=== PATIENT | female | born 1980 ===

== ENCOUNTER 2018-05-07 16:23 | Emergency (ER) | payer OTHER, SELFPAY ==
[2018-05-07 16:28] VITALS: BP 120/79; PULSE 80; RESP 15; TEMP 36.4; O2SAT 99
== END 2018-05-07 16:44 | disposition left against medical advice (07) ==
PROVIDERS: Emergency Provider Internal Medicine
DX: S61.412A Laceration without foreign body of left hand, initial encounter (principal)
CPT/HCPCS: 99281; 99282

== ENCOUNTER → 2021-05-17 08:07 | Outpatient (CLI) | payer OTHER, SELFPAY ==
[2021-05-17 08:41] LABS: COVID19 -Nasal RAPID Negative (Negative)
== END ==
PROVIDERS: Visit Provider Specialist
DX: Z01.812 Encounter for preprocedural laboratory examination (principal); Z20.822 Contact with and (suspected) exposure to COVID-19
CPT/HCPCS: 87635

== ENCOUNTER 2021-05-17 08:24 | Day surgery (SDC) | payer OTHER, SELFPAY ==
[2021-05-14 12:04] VITALS: BMI 34.0
--- NOTE | 2021-05-16 19:13 | PM.GYNHP.1 ---
History of Present Illness History of Present Illness Reason for admission: other (LEEP procedure) Narrative: Colleen Lee is a 40 year old female here for LEEP procedure for high-grade dysplasia of the cervix by colposcopy directed biopsies including possible endocervical involvement [facility] Medical History (Updated 05/16/21 @ 19:15 by Audrey Flores MD) Menorrhagia Surgical History (Updated 05/14/21 @ 12:10 by Robyn Lovell RN) H/O LEEP History of tubal ligation Hx of colposcopy with cervical biopsy (04/10/21) Social History household members: spouse Smoking Status: Current every day smoker Meds Home Medications and Allergies Home Medications Medication Instructions Recorded Confirmed Type medroxyprogesterone 10 mg tablet 10 mg PO DAILY #30 tab 03/05/21 05/14/21 Rx Allergies Allergy/AdvReac Type Severity Reaction Status Date / Time Sulfa (Sulfonamide Allergy Mild HIVES Verified 04/10/21 13:30 Antibiotics) [SULFA (SULFONAMIDE ANTIBIOTICS)] Review of Systems Review of Systems ROS: Yes All systems reviewed with the patient and are negative except as otherwise documented Exam Narrative Exam Narrative: HEENT exam within normal limits. Lungs are clear to auscultation percussion. Heart is regular rate and rhythm no S3-S4 murmurs. Abdomen is soft, nontender with no palpable organomegaly. Normal external genitalia, vagina, cervix. Uterus is not enlarged, nontender. No adnexal masses or tenderness. Assessment & Plan Assessment and plan (1) FATIMAH III (cervical intraepithelial neoplasia grade III) with severe dysplasia: Status: Acute (2) Preoperative exam for gynecologic surgery: Status: Acute Assessment & Plan narrative: Patient with FATIMAH 3 on Pap smear confirmed by colpo directed biopsies in all quadrants as well as possible involvement of the ECC. Patient has had a prior LEEP procedure. She is here for LEEP procedure.
--- NOTE | 2021-05-17 | PATH_ITS ---
[facility] Accession Number: [id number] . 01 Material submitted: . PART A: cervix - EXTERNAL CERVICAL OS PART B: cervix - INTERNAL CERVICAL OS PART C: endocervix - ENDOCERVICAL . 02 Diagnosis: A. External Cervixal Os, LEEP Biopsy: High-grade squamous intraepithelial lesion / FATIMAH 2-3 with gland extension. Detached fragments of high grade squamous dysplasia are adjacent to electrocauterized margins; tissue fragmentation precludes definitive margin assessment. No invasive tumor identified. . B. Internal Cervical Os, LEEP Biopsy: Portions of endocervical tissue. Negative for glandular dysplasia or malignancy. Negative for squamous dysplasia or malignancy. Changes consistent with previous instrumentation are present. . C. Endocervical Curetting: Small fragments of endocervical tissue and strips of endocervical glandular epithelium; negative for glandular dysplasia or malignancy. Portions of endometrium / lower uterine segment; negative for glandular hyperplasia, cytologic atypia, or malignancy. [facility] 05/22/2021 1435 Local . 02 Electronically signed: . Christen Rico MD, Pathologist NPI- [id number] . 01 Gross description: . A. Received in formalin and labeled external cervical os. It consists of a diffusely opened, 3.2 x 0.8 cm strip of pink-jones, focally hemorrhagic ectocervical mucosa excised to a depth of 0.5 cm. The endocervical edge is inked green. The radial margin is inked black. The specimen is serially sectioned. Sectioning reveals pink-jones to white-jones, striated, diffusely cystic cut surfaces. Cystic degeneration is involved in approximately 40% of cut surfaces. The specimen is submitted entirely and sequentially. . Summary of sections: A1 = External cervical os biopsy, serially sectioned, five pieces. A2 = External cervical os biopsy, serially sectioned, four pieces. A3-A4 = External cervical os biopsy, serially sectioned, three pieces. . B. Received in formalin and labeled internal cervical os. The specimen consists of a 1.1 x 1.1 x 0.4 cm, irregular, pink-jones to yellow-jones, focally hemorrhagic tissue fragment. An os is not grossly identified. The resection margin is inked black. The specimen is serially sectioned. Sectioning reveals white-jones, fibrous, unremarkable cut surfaces. The specimen is submitted entirely in a single cassette. . Summary of sections: B1 = Internal cervical os biopsy, serially sectioned, five pieces. . C. Received in formalin and labeled endocervical curettings. It consists of a 2.8 x 1.2 x 0.3 cm aggregate of pink-jones, ragged, diffusely hemorrhagic soft tissue fragments. Distinct features are not grossly apparent. The specimen is filtered and submitted entirely in a single cassette. . Summary of sections: C1 = Endocervical curettings, filtered, aggregate. ([id number]) /R 05/18/2021 1904 Local . 02 Pathologist provided ICD-10: N87.1, D06.9 . 02 CPT . 136738, 767677, 214031 Performed at: 01 [facility] [address] [place] [id number] MD Denilson Barfield MD Phone: [phone] Performed at: 02 [facility] [address] [place] [id number] MD Cecile Gray MD Phone: [phone]
[2021-05-17 09:33] VITALS: BP 116/75; PULSE 76; RESP 18; TEMP 36.8; O2SAT 99; BMI 34.0
[2021-05-17] MEDS: LACTATED RINGERS 1,000 ML 100 ML IV (09:44)
--- NOTE | 2021-05-17 10:02 | PM.PREOP ---
Pre-operative Note COVID-19 COVID-19 status: Negative Result date/Date tested (Pos, Neg/Pending): 05/17/21 Interval Note History & Physical reviewed/Exam performed by Physician: Yes Changes to H&P: No
--- NOTE | 2021-05-17 10:15 | SUR.OPER ---
Lithotomy on padded OR bed, head on pillow, arms secured on padded arm boards at <90 degrees abduction. Legs secured in padded yellow fins stirrups.
[2021-05-17] MEDS: FERRIC SUBSULFATE 8 GM SOLUTION 8 ML TOP (10:24)
[2021-05-17] MEDS: POTASSIUM IODIDE/IODINE 473 ML SOLUTION TOP (10:24)
[2021-05-17] MEDS: BUPIVACAINE 0.5% (PF) VIAL 30 ML INJ (10:25)
[2021-05-17] MEDS: EPINEPHrine 1 MG/ML 0.15 MG INJ (10:25)
[2021-05-17 10:51] VITALS: BP 140/87; PULSE 86; RESP 16; TEMP 36.8; O2SAT 97
--- NOTE | 2021-05-17 10:55 | PM.OP.1 ---
Operative Date/Time/Diagnoses Date of procedure: 05/17/21 Time of procedure: 10:55 Pre-op diagnosis: High-grade dysplasia of the cervix including the endocervical canal on colpo directed biopsies Post-op diagnosis: same Procedure & Clinicians Procedure: LEEP Same procedure as scheduled: Yes Indications: High-grade dysplasia on multiple cervical biopsies and ECC taken at colposcopy for abnormal Pap smear Surgeon: Audrey Flores Click Yes if Unassisted: Yes Anesthesia Type: General Operative Notes Findings: Normal exam under anesthesia no significant nonstaining by Lugol's areas of the external cervical Closure Type: not applicable Specimen(s): other (External cervical biopsy including the entire squamocolumnar junction, biopsy of the endocervix and ECC) Estimated Blood Loss (mL): 20 Procedure in detail: Patient was brought to the operating room she underwent a general anesthetic. She was placed in low stirrups. A check system was reviewed with the staff in the room prior to beginning the case. A coated bivalve speculum was placed into the vagina. The cervix was injected with 0.5% Marcaine with epinephrine. A single-tooth tenaculum was placed on the anterior lip of the cervix. The cervix was stained with Lugol's. The loop set at 60 W of cutting was used to remove the entire squamocolumnar junction. A slightly deeper section was taken of the endocervical canal. An ECC was performed. The tissue was cauterized external to the LEEP with ball cautery to extend the treatment zone. An area on the posterior wall of the biopsy continued to bleed so a [id number] suture of 0 Vicryl suture was used to control the bleeding. Monsel's was placed. The patient went to recovery room in good condition. Counts of instruments and sponges were correct. 3 specimens were sent for pathology. Complications: none Post-operative Condition: stable Disposition: same day surgery Plan for aftercare: Treatment and follow-up will be based on pathology report
[2021-05-17 10:56] VITALS: BP 138/57; PULSE 85; RESP 16; O2SAT 96
[2021-05-17 11:01] VITALS: BP 121/82; PULSE 79; RESP 14; O2SAT 95
[2021-05-17 11:25] VITALS: BP 142/80; PULSE 74; RESP 16; TEMP 36.1; O2SAT 98
== END 2021-05-17 11:40 | disposition home or self-care (01) ==
PROVIDERS: Referring Provider Specialist; Visit Provider Specialist
PROC: 0UBC7ZZ Excision of Cervix, Via Natural or Artificial Opening (ICD-10-PCS; CPT 57522; principal; 2021-05-17 10:15)
DX: N87.1 Moderate cervical dysplasia (principal); K21.9 Gastro-esophageal reflux disease without esophagitis; Z01.818 Encounter for other preprocedural examination; Z20.822 Contact with and (suspected) exposure to COVID-19
CPT/HCPCS: 57522; 87635; A9270; J0171; J0330; J1100; J2405; J2704; J3010

== ENCOUNTER → 2021-08-12 09:39 | Outpatient (CLI) | payer OTHER, SELFPAY ==
[2021-08-12 11:43] LABS: COVID19 -Nasal RAPID Negative (Negative)
== END ==
PROVIDERS: Visit Provider Nurse Practitioner Family
DX: Z20.822 Contact with and (suspected) exposure to COVID-19 (principal); Z01.812 Encounter for preprocedural laboratory examination
CPT/HCPCS: 87635

== ENCOUNTER 2021-08-13 06:58 | Day surgery (SDC) | payer OTHER, SELFPAY ==
--- NOTE | 2021-08-13 | PATH_ITS ---
[facility] Accession Number: [id number] . 01 Material submitted: . PART A: stomach - ANTRUM PART B: duodenum - DUODENUM . 02 Diagnosis: A. Stomach, Antrum, Biopsy: Antral mucosa with mild chronic gastritis. Negative for Helicobacter by immunohistochemistry. Negative for intestinal metaplasia. Negative for dysplasia and malignancy. . B. Duodenum, Biopsy: Small bowel mucosa with no diagnostic abnormality. Negative for active inflammation, features of sprue, dysplasia, and malignancy. . [facility] 08/16/2021 1545 Local . 02 Electronically signed: . Cecile Gray MD, Pathologist NPI- [id number] . 01 Gross description: . Part A: ANTRUM: Received in formalin are 2 fragment(s) of jones, soft tissue measuring 0.4 x 0.3 x 0.1 cm to 0.4 x 0.2 x 0.1 cm submitted entirely in 1 cassette(s) Part B: DUODENUM: Received in formalin are 2 fragment(s) of jones, soft tissue measuring 0.4 x 0.3 x 0.2 cm to 0.3 x 0.2 x 0.1 cm submitted entirely in 1 cassette(s) /ANGEL 08/14/2021 0339 Local . 02 Microscopic: . A. An immunohistochemical stain was performed to evaluate for Helicobacter organisms and is negative. The control stain showed appropriate reactivity. . * This test was developed and its performance characteristics determined by [facility]. It has not been cleared or approved by the U.S. Food and Drug Administration. The FDA has determined that such clearance or approval is not necessary. This test is used for clinical purposes. It should not be regarded as investigational or for research. . 02 Pathologist provided ICD-10: R19.4 . 02 CPT . 376123, 280793, H75635 Performed at: 01 [facility] [address] [id number] MD Denilson Barfield MD Phone: [phone] Performed at: 02 [facility] [address] [place], [place] [id number] MD Cecile Gray MD Phone: [phone]
[2021-08-13 07:16] VITALS: BP 114/79; PULSE 87; RESP 16; TEMP 37.1; O2SAT 97; BMI 30.9
[2021-08-13] MEDS: SODIUM CHLORIDE 0.9% 1,000 ML 84 ML IV (07:32)
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
--- NOTE | 2021-08-13 07:59 | PM.PREOP ---
Pre-operative Note COVID-19 COVID-19 status: Negative Result date/Date tested (Pos, Neg/Pending): 08/12/21 Interval Note History & Physical reviewed/Exam performed by Physician: Yes Changes to H&P: Yes ASA Class (for procedural sedation): II
--- NOTE | 2021-08-13 08:17 | PM.OP.EGD ---
Operative Date/Time/Diagnoses Date of procedure: 08/13/21 Time of procedure: 08:17 Pre-op diagnosis: Large hiatal hernia epigastric pain altered bowel habit Post-op diagnosis: same Procedure & Clinicians Study performed: EGD with biopsies Same procedure as scheduled: Yes Indications: Large hiatal hernia epigastric pain reflux and altered bowel habit Surgeon: Jorje Root Procedure Notes SCOAP/Timeout: Done Procedure in detail: After the risks and benefits were explained, written and verbal informed consent was obtained. The patient was brought into the procedure room and placed into the left lateral decubitus position. See nurse field logistics coordinator notes for sedation details. The scope was introduced into the mouth through the bite block and advanced under direct visualization to the 2nd portion of the duodenum. The scope was slowly withdrawn carefully examining the mucosa for any defects or lesions. Retroflexed views were accomplished in the stomach. The stomach was decompressed, the scope was then removed from the patient who tolerated the procedure well. Complications: none Impression: 1. Duodenum: This appeared visually normal from the bulb through to the 2nd portion. Considering the patient's reported alteration of bowel biopsies were taken from the 2nd portion for exclusion of sprue. 2. Stomach: Patient had a few faint subtle erosive features in the antrum and pre-pyloric/pyloric region. Couple of antral biopsies were thus taken for exclusion of H pylori or any other underlying histopathology. Retroflexed views of the LES disclosed a moderate-sized hiatal hernia with several Philippe's erosions. 3. Esophagus: The squamocolumnar junction correlated with the top of the gastric folds. No endoscopic suggestion of Ramirez's. GE junction was at approximately 34 cm from the incisors. The diaphragmatic pinchcock was at approximately 39 cm from the incisors. There was very subtle esophagitis at the level of the GE junction consistent with a patient who had been off PPI. Patient coughed during our endoscopy and there was a very subtle Karena-Hill in the 8 o'clock position. There was no evidence of any ongoing bleeding. The distal esophagus was a little bit tortuous otherwise visually unremarkable. Endoscopic diagnosis 1. Large hiatal hernia 2. Subtle esophagitis 3. Tortuous distal esophagus 4. Philippe's erosions 5. Erosive gastropathy Post-procedure Plan for aftercare: 1. Await histopathology 2. Resume proton pump inhibitor therapy 3. Proceed with manometry and surgery follow-up as planned. Disposition: PACU
[2021-08-13 08:19] VITALS: BP 113/76; PULSE 88; RESP 13; TEMP 36.2; O2SAT 96
[2021-08-13 08:25] VITALS: BP 119/76; PULSE 71; RESP 16; O2SAT 99
[2021-08-13 08:29] VITALS: BP 127/84; PULSE 67; RESP 16; O2SAT 98
[2021-08-13 08:34] VITALS: BP 128/80; PULSE 73; RESP 15; TEMP 36.7; O2SAT 98
[2021-08-13 08:39] VITALS: BP 120/80; PULSE 71; RESP 16; O2SAT 99
== END 2021-08-13 08:55 | disposition home or self-care (01) ==
PROVIDERS: Referring Provider Internal Medicine Gastroenterology; Visit Provider Internal Medicine Gastroenterology
PROC: 0DJ08ZZ Inspection of Upper Intestinal Tract, Via Natural or Artificial Opening Endoscopic (ICD-10-PCS; CPT 43235; principal; 2021-08-13 08:00)
DX: K21.00 Gastro-esophageal reflux disease with esophagitis, without bleeding (principal); R19.4 Change in bowel habit; K44.9 Diaphragmatic hernia without obstruction or gangrene; K31.9 Disease of stomach and duodenum, unspecified; K22.10 Ulcer of esophagus without bleeding; K29.50 Unspecified chronic gastritis without bleeding
CPT/HCPCS: 43239; J2704

== ENCOUNTER 2024-03-03 12:04 | Emergency (ER) | payer OTHER, SELFPAY ==
[2024-03-03 12:07] VITALS: BP 131/99; PULSE 95; RESP 16; TEMP 37.1; O2SAT 97; BMI 35.5
--- NOTE | 2024-03-03 12:21 | DI.US.S_ITS ---
PROCEDURE: US PELVIC COMPLETE INDICATIONS: Significant vaginal bleeding after biopsy TECHNIQUE: Real-time scanning was performed of the pelvic organs, with image documentation. Patient refused transvaginal imaging. COMPARISON: None. FINDINGS: Uterus: Uterus is anteverted and normal in size at 10.4 x 6.5 x 5.3 cm. The myometrium is homogeneous. The endometrium measures 10.2 mm combined thickness. No focal uterine mass Ovaries: The right ovary measures 3.0 x 1.6 x 1.8 cm, with a calculated ovarian volume of 4.5 cc. The left ovary measures 3.1 x 2.5 x 2.2 cm, with a calculated ovarian volume of 8.9 cc. Right para ovarian cyst measuring 12 mm. The ovaries otherwise have a normal sonographic appearance. Less than 12 follicles can be seen in each ovary. No adnexal masses are seen. Limited transabdominal Doppler imaging of the ovaries is grossly unremarkable. Other: No pathologic free abdominal or pelvic fluid. IMPRESSION: 1. Limited examination demonstrating no acute process. 2. We strive to produce accurate, complete, and clear reports of imaging services. To assist us in improving patient care, this report was composed using standard report templates and voice recognition software. Therefore, it may contain abnormal punctuation, insertions and/or omissions. Occasional wrong-word or sound-alike substitutions may occur. Though we review the report and make efforts to correct it, we do recommend that the report be read carefully in proper context to recognize any text inaccuracies. Dictated by: Fermín Jones M.D. on 03/03/2024 at 13:54 Approved by: Fermín Jones M.D. on 03/03/2024 at 13:56
[2024-03-03 13:28] LABS: Add Manual Diff / Slide Review NO; Basophils Absolute Auto 100 /uL (0-100); Basophils Percent Auto 0.9 % (0-2); Eosinophils Absolute Auto 200 /uL (0-450); Eosinophils Percent Auto 2.3 % (2-4); Hematocrit 44.4 % (36-46); Hemoglobin 14.9 g/dL (12.0-16.0); Lymphocytes Absolute Auto 2600 /uL (1100-4500); Lymphocytes Percent Auto 26.4 % (25-40); Mean Corpuscular HGB Conc 33.6 % (30-36); Mean Corpuscular Hemoglobin 30.5 PG (26-34); Mean Corpuscular Volume 90.6 fL (80-100); Monocytes Absolute Auto 700 /uL (0-900); Monocytes Percent Auto 7.1 % (3-14); Neutrophils Absolute Auto 6200 /uL (1500-7000); Neutrophils Percent Auto 63.3 % (50-75); Platelet Count 241 X10^3/uL (150-400); Red Cell Distribution Width 13.3 % (11.6-14.8); White Blood Cell Count 9.7 X10^3/uL (4.5-11.0)
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
[2024-03-03 13:39] LABS: BUN Creatinine Ratio 12.9 (6-22); Blood Urea Nitrogen 8 mg/dL (7-17); Calcium 9.8 mg/dL (8.4-10.2); Carbon Dioxide 26 mmol/L (22-32); Chloride 107 mmol/L (98-107); Estimated Glomerular Filt Rate > 60 mL/min (>60); Glucose 101 mg/dL (70-100); HEMOLYSIS < 15 (0-50); Sodium 140 mmol/L (137-145)
[2024-03-03 13:42] LABS: Pregnancy Test Serum,Qual Negative (Negative)
== END 2024-03-03 14:17 | disposition home or self-care (01) ==
PROVIDERS: Emergency Provider Emergency Medicine
DX: N93.9 Abnormal uterine and vaginal bleeding, unspecified (principal)
CPT/HCPCS: 36415; 76830; 76856; 80048; 84703; 85025; 93975; 99283